=== PATIENT | female | born 1985 | race Caucasian/White ===

== ENCOUNTER → 2019-07-05 | Day surgery (SDC) | payer OTHER ==
[~2019-07-05] MED LIST: ACETAMINOPHEN/CODEINE 300MG - 30MG TAB ONE; BENADRYL25 M1 PO; DEXAMETHASONE SOD PHOS INJ 4 MG/ML VIAL ONE; EPINEPHRINE HCL 1:1000 1ML 1 MG/ML AMP ONE; FENTANYL CITRATE/PF 100MCG/2 ML INJ ONE; LEXAPRO10 MG PO; LIDOCAINE 1% W/EPINEPHRINE 20 ML VIAL ONE; LIDOCAINE HCL 2% LOCAL INJ 5 ML SDV VIAL INJ ONE; METOCLOPRAMIDE HCL 10 MG/2ML VIAL ONE; MIDAZOLAM HCL 2 MG/2 ML VIAL ONE; ONDANSETRON HCL INJ 2MG/ML 2ML 2 MG/ML VIAL ONE; PROPOFOL IV EMULSION 10 MG/ML 20 ML VIAL ONE; SEVOFLURANE INHAL SOLN 250 ML PEN BTL ONE; VITAMIN D400 UNIT PO
[2019-07-05 11:50] VITALS: BP 120/76
--- NOTE | 2019-07-05 16:30 | Operative Report ---
DATE OF PROCEDURE: 07/05/2019 SURGEON: Haim Mclaughlin MD CHIEF COMPLAINT: Chronic sinusitis, nasal obstruction, chronic adenoiditis. POSTOPERATIVE DIAGNOSES: Chronic sinusitis, nasal obstruction, chronic adenoiditis. OPERATIVE PROCEDURES: Left anterior ethmoidectomy, left maxillary sinus antrostomy, left resection of tissue, maxillary antrum, left sphenoidotomy, and right sphenoidectomy and also adenoidectomy. ANESTHESIA: [facility]. INDICATIONS: This is a 34-year-old female has history of nasal obstruction and postnasal drip discharge from her nose. Her condition has been treated with more than 12 weeks of antibiotics and topical nasal steroid decongestant with no improvement. On examination, she was noted to have adenoid hypertrophy blocking both posterior choana and hypertrophy of the inferior turbinate. CT scan of paranasal sinuses done before surgery showed the patient has adenoid hypertrophy and also anterior ethmoid involvement, left maxillary sinus involvement, bilateral sphenoid involvement. It was decided endoscopic sinus surgery, adenoidectomy, and other necessary procedure will be beneficial for her. DESCRIPTION OF PROCEDURE: The patient was taken to operating room, put under general anesthesia, and endotracheally intubated. The nose was injected with 1% Xylocaine with 1:100,000 epinephrine for hemostasis. An epinephrine-soaked pledget was inserted in the nose and subsequently removed. The left paranasal sinuses were approached first. Middle turbinate was medialized. The bulla ethmoidalis was entered. Anterior ethmoid sinus was dissected in a systematic fashion. Care was taken during dissection to ascertain that the orbit was not entered. Using a curved probe, the natural ostium of the maxillary sinus was entered. This was enlarged anteriorly and posteriorly and using a backbiter and Thru-Cut forceps respectively. Inflamed tissue and maxillary antrum were dissected using the upbiting Thru-Cut forceps. The sphenoid natural ostium was examined. This was entered and enlarged using a micro shaver. Inflamed tissue and sphenoid sinus were dissected using a micro shaver. The right paranasal sinuses were approached. The sphenoid sinus, natural osteo areas, and sphenoid canal was examined. The natural ostia of the sphenoid sinus were entered. This was enlarged using a microshaver. Inflamed tissue in the sphenoid sinus was dissected using a micro shaver. Using a 0-degree endoscope and the microshaver, the adenoid tissue was dissected in a systematic fashion endo nasally. Before procedure was performed, soft palate was examined. No submucous cleft was noted. After the adenoid tissue was examined, the hemostasis in the adenoid bed was achieved using the suction cautery. NasoPore was inserted in the sinus cavity, mainly on the left side. The patient tolerated above procedure well bilaterally. This was done to prevent synechiae formation and for hemostasis. The patient tolerated the above procedure well. Estimated blood loss about 20 mL. She was given 20 mg of Decadron intraoperatively. The patient was able to be transferred to recovery room in stable condition. MD JACKY Levi/BERNADETTE /[id number]
--- NOTE | 2019-07-06 12:35 | Pre Op History & Physical ---
ANTICIPATED DATE OF SURGERY: July 05, 2019. CHIEF COMPLAINT: Chronic sinusitis, nasal obstruction. HISTORY OF PRESENT ILLNESS: This 33 years old female has a history of nasal obstruction with frontal and maxillary pain. She has decreased sense of smell. The patient has no epistaxis. The patient has questionable pressure on her optic nerve. Her condition has been treated with topical nasal steroid, decongestant, and antibiotics over the past 12 weeks with no improvement. The patient was noted to have adenoid tissue blocking, her posterior choana on exam, and chronic sinusitis on the CT scan of paranasal sinuses. The patient was noted to have ethmoid sinus involvement, maxillary sinus involvement, sphenoid sinus involvement. Deviated nasal septum on the left side was noted. REVIEW OF SYSTEMS: System review showed no recent cardiovascular, respiratory, or GI problem. PAST MEDICAL HISTORY: The patient has no significant medical problem. PAST SURGICAL HISTORY: The patient had previous back surgery and tonsillectomy. ALLERGIES: SHE HAS NO KNOWN ALLERGIES. MEDICATIONS: She is on Benadryl, biotin, vitamin D, and escitalopram. SOCIAL HISTORY: She is a nonsmoker and a social drinker. FAMILY HISTORY: Noncontributory. PHYSICAL EXAMINATION: VITAL SIGNS: On examination, the patient's vital signs were within normal limits. HEENT: Ear exam showed normal tympanic membrane bilaterally. Nasal exam showed hypertrophy of the inferior turbinates. Oropharynx and oral cavity show no tonsils with Mallampati level 2. NECK: Showed no lymph node or thyroid palpable. CHEST: Showed good air entry bilaterally. CARDIOVASCULAR: Showed S1 and S2. No murmur noted. ASSESSMENT AND PLAN: Ms. Bowling has chronic sinusitis, nasal obstruction, which has been resistant to conservative therapy. The suggested treatment is endoscopic sinus surgery, septoplasty, adenoidectomy, and other necessary procedure. Complication of procedure includes, but not limited to bleeding, infection, CSF leak, blindness, double vision, meningitis, persistent nasal obstruction, persistent nasal crusting, nasal deformity, recurrence of the sinus problem and persistent headaches. Also include hypernasal speech, nasal regurgitation of food, airway distress, recurrence of the sore throat. Alternatives will be continue observation, continue antibiotic therapy, topical nasal steroid therapy, systemic steroid therapy, decongestant. The patient has elected to undergo the surgical procedure. MD JACKY Levi/RANJANAL /[id number] cc: Sury Tiwari MD
== END | disposition home or self-care (01) ==
LOC: OR 07:06
PROVIDERS: ATTEND Otolaryngology Otolaryngology/Facial Plastic Surgery
DX: J35.02 Chronic adenoiditis (principal); J32.0 Chronic maxillary sinusitis; J34.89 Other specified disorders of nose and nasal sinuses; J32.2 Chronic ethmoidal sinusitis; J32.3 Chronic sphenoidal sinusitis; J34.2 Deviated nasal septum; J34.3 Hypertrophy of nasal turbinates
CPT/HCPCS: 31254; 31267; 31288; 42831; 81025; 88304; J0171; J1100; J2001; J2250; J2405; J2704; J2765; J3010

== ENCOUNTER → 2020-01-03 | Day surgery (SDC) | payer OTHER ==
--- NOTE | 2020-01-02 11:36 | Pre Op History & Physical ---
DATE OF SURGERY: January 03, 2020. CHIEF COMPLAINT: Recurrent otitis media. HISTORY OF PRESENT ILLNESS: This 34 years old female has decreased hearing, worse on the left ear. The patient has this started in July of 2019. She has been treated with multiple antibiotics including systemic steroid with no improvement. The patient had endoscopic sinus surgery and adenoidectomy in June of 2019. 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 CT scan of the temporal bone that was done at the end of November showed the patient has bilateral otitis media, worse on the right with questionable defect in the tympanic membrane on the right side. The patient's condition has been treated with topical nasal steroids and systemic antibiotics with no improvement of the condition. REVIEW OF SYSTEMS: System review showed no recent cardiovascular, respiratory, or GI problem. PAST MEDICAL HISTORY: The patient has no significant medical problem. PAST SURGICAL HISTORY: The patient has previous back surgery in 2013. She had bilateral myringotomy and tubes when she was younger and tonsillectomy and in June she had endoscopic sinus surgery and adenoidectomy in June of 2019. ALLERGIES: SHE HAS NO KNOWN ALLERGY TO MEDICATION. MEDICATIONS: She is on escitalopram, Benadryl, biotin and vitamin D. SOCIAL HISTORY: She is a nonsmoker. Social drinker. FAMILY HISTORY: Noncontributory. PHYSICAL EXAMINATION: VITAL SIGNS: The patient's vital signs were within normal limits. HEENT: Ear exam show serous effusion in both ears. Nasal exam showed hypertrophy of inferior turbinate. Oropharynx and oral cavity showed no tonsils noted. The patient has Mallampati level 2. NECK: Showed no lymph node or thyroid palpable. CHEST: Showed good air entry bilaterally. CARDIOVASCULAR: Showed S1 and S2. No murmur noted. ASSESSMENT AND PLAN: Ms. Byers has recurrent otitis media which has been resistant to conservative therapy. Suggested treatment is bilateral myringotomy and tubes and rigid nasal endoscopy, biopsy of the nasopharynx and other necessary procedure. Complication of procedure includes but not limited to bleeding, infection, TM perforation, persistent drainage from the ear, hearing loss, recurrence of the ear infection along with hyponasal speech, nasal regurgitation of food, airway distress, persistent recurrence of the problem. Alternatives will be continued observation, continue antibiotic therapy, topical nasal steroid therapy, systemic steroid therapy decongestant and myringotomy and tubes in the office setting. The patient has elected to undergo surgical procedure. MD JACKY Levi/MODL /[id number] cc: Sury Tiwari MD
[~2020-01-03] MED LIST changes: -ACETAMINOPHEN/CODEINE 300MG - 30MG TAB ONE; +ETOMIDATE 2 MG/ML 10 ML INJ IV ONE; -FENTANYL CITRATE/PF 100MCG/2 ML INJ ONE; +KETOROLAC TROMETHAMINE 30 MG/ML VIAL ONE; -LIDOCAINE 1% W/EPINEPHRINE 20 ML VIAL ONE; -MIDAZOLAM HCL 2 MG/2 ML VIAL ONE; +OFLOXACIN 0.3% (OTIC SOL) 5 ML BTL ONE; -PROPOFOL IV EMULSION 10 MG/ML 20 ML VIAL ONE; +ROCURONIUM BROMIDE 10 MG/ML 5ML VIAL IV ONE; +SUCCINYLCHOLINE CHLORIDE 20 MG/ML 10ML VIAL ONE; +XYZAL5 MG PO
[2020-01-03 10:00] VITALS: BP 126/81
--- NOTE | 2020-01-03 10:19 | Operative Report ---
DATE OF PROCEDURE: 01/03/2020 SURGEON: Haim Mclaughlin MD CHIEF COMPLAINT: Recurrent otitis media. POSTOPERATIVE DIAGNOSIS: Recurrent otitis media. OPERATIVE PROCEDURE: Bilateral myringotomy and tubes and rigid nasal endoscopy with biopsy of nasopharynx on the right and left. ANESTHESIA: [facility]. HISTORY OF PRESENT ILLNESS: This 34-year-old female has recurrent ear infection. The patient has decreased hearing, worse on the left ear. Audiogram showed the patient has a moderate mixed hearing loss on the left with a mild sensorineural hearing loss on the right. The patient had a CT scan of the temporal bone, which showed that she has effusion in both of the ears, worse on the left. It was decided that bilateral myringotomy tubes and nasal endoscopy with biopsy of nasopharynx and other necessary procedure will be beneficial for her. DESCRIPTION OF PROCEDURE: The patient was taken to the operating room, put under general anesthesia, endotracheally intubated. The right ear was examined. Ear canal was debrided. The air-fluid level was noted in the right middle ear and myringotomy was done in anterior-superior quadrant, serous effusion was suctioned out. Alvarenga grommet tube was inserted. The left ear was examined. The ear canal was debrided. The myringotomy was done in the anterior-superior quadrant. Mucoid effusion was noted in the middle ear cleft, this was suctioned out. Alvarenga grommet tube was inserted. The rigid nasal endoscopy was performed. One cotton pledget with 1:100,000 epinephrine was inserted into the nose. The nasal cavity was examined on both sides. No abnormality was noted. The nasopharynx was examined. Slight hypertrophied of adenoid was noted. Using a Matthew-Cut forceps, both the left and the right nasopharynx was biopsied and sent for permanent section. The patient tolerated the above procedure well with minimal blood loss. She was able to be transferred to recovery room in stable condition. Haim Mclaughlin MD [facility]/MODL /[id number]
== END | disposition home or self-care (01) ==
LOC: OR 06:33
PROVIDERS: ATTEND Otolaryngology Otolaryngology/Facial Plastic Surgery
DX: H65.21 Chronic serous otitis media, right ear (principal); H65.32 Chronic mucoid otitis media, left ear; H90.71 Mixed conductive and sensorineural hearing loss, unilateral, right ear, with unrestricted hearing on the contralateral side; H90.42 Sensorineural hearing loss, unilateral, left ear, with unrestricted hearing on the contralateral side; J35.2 Hypertrophy of adenoids; Z01.812 Encounter for preprocedural laboratory examination; Z11.59 Encounter for screening for other viral diseases
CPT/HCPCS: 31237; 69436; 81025; 87635; 88305; J0171; J0330; J1100; J1885; J2001; J2405; J2765